=== PATIENT | male | born 1950 | race Hispanic/Latino ===

== ENCOUNTER 2017-04-28 07:15 | Day surgery (SDC) | payer BC ==
[2017-04-02 12:37] VITALS: BMI 24.2
[2017-04-28] MEDS ORDERED: ceFAZolin IV 2 gm in Dextrose 2 GM/50 ML BAG IVPB ONE (09:49)
[2017-04-28] MEDS ORDERED: Iohexol 240 (50 ml) ONE (09:50)
[2017-04-28] MEDS ORDERED: Propofol 10 mg/ml Inj (20 ML) ONE (10:11)
[2017-04-28] MEDS ORDERED: Rocuronium 10 mg/ml (5 ml) ONE (10:45)
[2017-04-28] MEDS ORDERED: Succinylcholine Chloride 20 mg/ml Syr (5 ml) IV ONE (10:45)
[2017-04-28] MEDS ORDERED: Phenylephrine 10 mg/ml Inj ONE (10:45)
[2017-04-28] MEDS ORDERED: Neostigmine Methylsulfate 3mg/3ml Syringe IV ONE (11:28)
--- NOTE | 2017-04-28 12:11 | PCM.SURG1 ---
Surgeon's Initial Post Op Note - Surgeon's Notes Surgeon: Dr. Mayfield Gas Regulator Repairer Helper: PGY1, Anderson OMS3 Type of Anesthesia: General Endo Pre-Operative Diagnosis: Cholelithiasis Operative Findings: see op note Post-Operative Diagnosis: as above Operation Performed: laparoscopic cholecystectomy Specimen/Specimens Removed: gallbladder Estimated Blood Loss: EBL {In ML}: 15 Blood Products Given: N/A Post-Op Condition: Good Date of Surgery/Procedure: 04/28/17 Time of Surgery/Procedure: 12:11
[2017-04-28] MEDS ORDERED: Oxycodone/Acetaminophen 5/325 mg Tab PO ONE (12:13)
[2017-04-28] MEDS: HYDROmorphone 0.5 mg/0.5 ml ISec IVP PRN ×2 (12:39→13:10)
[2017-04-28 13:57] VITALS: TEMP 97.3; O2SAT 95
[2017-04-28 14:40] VITALS: BP 129/66; PULSE 58; RESP 15
--- NOTE | 2017-04-28 15:32 | RAD ---
PROCEDURE: Intraoperative Fluoroscopy. HISTORY: Cholecystitis. FINDINGS: Fluoroscopic assistance was provided for cholangiogram. Please refer to the operative report from [facility].
--- NOTE | 2017-04-28 23:12 | OP ---
PROCEDURE DATE: 04/28/2017. PREOPERATIVE DIAGNOSES: Cholecystitis, cholelithiasis. POSTOPERATIVE DIAGNOSES: Cholecystitis, cholelithiasis. PROCEDURE CARRIED OUT: Laparoscopic cholecystectomy with C-arm cholangiogram. SURGEON: Ulises Mayfield Jr., MD ENERGY BROKER: Dr. Taylor. ANESTHESIOLOGIST: Dr. Gallo. INDICATIONS: The patient is a older middle aged man who had episodes of abdominal pain, was found to have gall stones. OPERATIVE FINDINGS: Cholangiogram carried out to the cystic duct showed a dilated duct, but no evidence of any stones, strictures, free flow into the duodenum and good visualization of hepatic radicles. previous left inguinal hernia repair and an umbilical hernia repair with regard to changing our puncture site. The rest of the intraoperative findings are unremarkable. There was some adhesions to the umbilical hernia region. DESCRIPTION OF PROCEDURE: The patient was given general anesthesia and intravenous antibiotics. Venodyne boots were applied. Initially we made an incision adjacent to the umbilicus and at this point it was obvious that the mesh was clearly there. So we made another puncture after we created a pneumoperitoneum with puncture in the right upper quadrant and made a clean puncture into the abdominal cavity. We then placed two additional trocars, for a total of four. We identified the cystic duct, cystic artery, clipped these. We carried out the cholangiogram as mentioned above, our view of safety was adequate, showing the cystic duct, cystic artery and the liver tissue behind the gall bladder. After this had been done, we then clipped the cystic duct, clipped the cystic arteries, carried out the cholangiogram as mentioned above with the above mentioned finding and then we removed the gall bladder. The gall bladder was quite large, we had to stretch out the paraumbilical incision to allow for its passage, but eventually this went through. We then closed this under direct vision. The other 5-mm port were left to close spontaneously. Blood loss to procedure was less than 100 mL. The operation carried out laparoscopic cholecystectomy with C-arm cholangiogram, the operation was more difficult than usual due to the previous repairs at the umbilicus. Ulises Mayfield Jr., MD cc: . Psychiatric # [id number]
== END 2017-04-28 14:27 | disposition home or self-care (01) ==
LOC: C.SDS 07:15
PROVIDERS: ATTEND Surgery Vascular Surgery
DX: K80.10 Calculus of gallbladder with chronic cholecystitis without obstruction (principal); G47.33 Obstructive sleep apnea (adult) (pediatric); Z86.718 Personal history of other venous thrombosis and embolism; I25.10 Atherosclerotic heart disease of native coronary artery without angina pectoris; Z79.82 Long term (current) use of aspirin; Z87.891 Personal history of nicotine dependence; R00.1 Bradycardia, unspecified
CPT/HCPCS: 47563; 88304; J0690; J1170; J2001; J2370; J2704; J2710; J3010; Q9966